=== PATIENT | male | born 1965 | race Asian ===

== ENCOUNTER 2017-04-29 21:28 | Emergency (ER) | payer OTHER ==
[2017-04-29 21:57] LABS: % BASOPHILS 0.3 % (0.0-2.0); % EOSINOPHILS 1.8 % (0.0-5.0); % MONOCYTES 7.2 % (2.0-10.0); % NEUTROPHILS 52.7 % (40.0-80.0); HEMATOCRIT 47.3 % (41.0-60); HEMOGLOBIN 15.8 gm/dL (12-16); MEAN CELL VOLUME 84.4 fl (80-99); MEAN CORPUSCULAR HEMOGLOBIN 28.2 pg (26.0-30.0); MEAN CORPUSCULAR HGB CONC 33.4 pg (28.0-36.0); MEAN PLATELET VOLUME 8.1 fl; NEUTROPHILE ABSOLUTE 4.5 Th/cmm (1.8-8.0); PLATELET COUNT 215 Th/cmm (150-400); WHITE BLOOD COUNT 8.6 Th/cmm (4.8-10.8)
[2017-04-29 22:07] LABS: ANION GAP 10.6 (7.0-16.0); BUN - UREA NITROGEN 18 mg/dL (7-25); CALCIUM SERUM 9.4 mg/dL (8.6-10.3); CHLORIDE 99 mEq/L (98-107); GLUCOSE 105 mg/dL (70-105); POTASSIUM SERUM 3.6 mEq/L (3.5-5.1); SODIUM SERUM 133 mEq/L (136-145)
--- NOTE | 2017-04-29 22:46 | ED Physician Chart ---
ED Chief Complaint/HPI - Patient Information Date Seen:: 04/29/17 Chief Complaint:: dizziness sudden onset no sob no oppresivchest discomfort no visual problem Allergies:: Allergies Allergy/AdvReac Type Severity Reaction Status Date / Time No Known Allergies Allergy Verified 04/29/17 21:44 Vitals:: Vital Signs - 8 hr 04/29/17 21:30 Temp 97.6 F HR 78 RR 19 BP 158/102 O2 Sat % 96 Review:: Nurse's Note Reviewed ED Review of Systems - Review of Systems General/Constitutional: No fever Skin: No skin lesions Head: No headache Eyes: No loss of vision, No diplopia ENT: No earache Neck: No neck pain Cardio Vascular: No chest pain Pulmonary: No SOB GI: No vomiting G/U: No dysuria Musculoskeletal: No bone or joint pain Endocrine: No polyuria Psychiatric: No prior psych history Hematopoietic: No bruising Allergic/Immuno: No urticaria Neurological: No syncope ED Past Medical History - Past Medical History Past Medical History: HTN Family History: None Social History: Non Smoker, No Alcohol Surgical History: None Family Medical History - Family Member Father Hx Family Diabetes: Yes ED Physical Exam - Physical Examination General/Constitutional: Well-developed, well-nourished, Alert, No distress, Non- toxic appearing, Ambulatory Head: Atraumatic Eyes: Lids, conjuctiva normal Skin: No rash ENMT: External ears, nose nl Neck: Nontender Respiratory: Clear to Auscultation Cardio Vascular: RRR, No murmur, gallop, rubs, NL S1 S2, Carotid/Femoral/Distal pulses equal bilaterally GI: No tenderness/rebounding/guarding : No CVA tenderness Extremities: Full ROM, normal strength in all extremities Neuro/Psych: Alert/oriented, DTR's symmetric, Normal sensory exam, Normal motor strength, Judgement/insight normal, Mood normal, Normal gait, No focal deficits Misc: Normal back ED Labs/Radiology/EKG Results - Lab Results Results: Laboratory Tests 04/29/17 04/29/17 21:45 21:45 WBC 8.6 RBC 5.60 Hgb 15.8 Hct 47.3 MCV 84.4 MCH 28.2 MCHC Differential 33.4 RDW 12.0 Plt Count 215 MPV 8.1 Neutrophils % 52.7 Lymphocytes % 38.0 Monocytes % 7.2 Eosinophils % 1.8 Basophils % 0.3 Sodium 133 L Potassium 3.6 Chloride 99 Carbon Dioxide 27.0 Anion Gap 10.6 BUN 18 Creatinine 1.0 Est GFR ( Amer) > 60.0 Est GFR (Non-Af Amer) > 60.0 BUN/Creatinine Ratio 18.0 Glucose 105 Calcium 9.4 ED Assessment - Assessment General Assessment: episodic transient dizziness no cva no mi ekg avr one lead abnormality follow up pmd for evaluation risk on tuesday recheck Na ED Septic Shock - . Is Septic Shock (SBP<90, OR Lactate>4 mmol\L) present?: No - <6hrs of presentation: Vital Signs: Vital Signs - 8 hr 04/29/17 21:30 Temp 97.6 F HR 78 RR 19 BP 158/102 O2 Sat % 96 Assessment of Lungs: No Rales Assessment of Heart: RRR EKG Interpretation: NSR ED Reassessment (Disposition) - Reassessment Reassessment Condition:: Improved - Aftercare/Follow up Instructions Aftercare/Follow-Up Instructions:: Counseled pt regarding lab results/diagnosis & need follow up, Refer to Discharge Instructions ED Discharge Plan - Patient Disposition Condition at Disposition: Improved
== END 2017-04-29 23:10 | disposition home or self-care (01) ==
LOC: ER 21:28 → EEVIPCON 21:28 → ER 23:10
DX: R42 Dizziness and giddiness (principal); I10 Essential (primary) hypertension
CPT/HCPCS: 36415-UA; 80048-TC; 85025-TC; 93005